=== PATIENT | female | born 2000 | race African-American/Black ===

== ENCOUNTER 2022-01-26 17:32 | Emergency (ER) | payer SELFPAY ==
[~2022-01-26] VITALS: Ht 172.7 cm; Wt 80.5 kg
[2022-01-26 17:33] VITALS: BP 130/69
[2022-01-26] MEDS ORDERED: KETOROLAC TROMETHAMINE 10 MG TAB PO ONE (19:00)
== END 2022-01-26 19:02 | disposition home or self-care (01) ==
LOC: M ED 17:32
DX: S93.601A Unspecified sprain of right foot, initial encounter (principal); W22.8XXA Striking against or struck by other objects, initial encounter; Y92.9 Unspecified place or not applicable; Y93.9 Activity, unspecified; Y99.9 Unspecified external cause status

== ENCOUNTER 2022-04-11 20:15 | Emergency (ER) | payer SELFPAY ==
[~2022-04-11] VITALS: Ht 172.7 cm; Wt 80.9 kg
[2022-04-11 20:16] VITALS: BP 128/99
== END 2022-04-11 22:09 | disposition home or self-care (01) ==
LOC: M ED 20:15
DX: Z32.02 Encounter for pregnancy test, result negative (principal)

== ENCOUNTER 2022-05-25 13:50 | Emergency (ER) | payer OTHER, SELFPAY ==
[~2022-05-25] VITALS: Ht 172.7 cm; Wt 82.1 kg
[2022-05-25 15:33] LABS: BASO % 0.3 % (0.0-1.0); EOS # 0.1 10^3/uL (0.0-0.5); HEMATOCRIT 36.9 % (36.0-47.0); HEMOGLOBIN 11.5 g/dl (12.0-15.5); LYMPH # 2.7 10^3/uL (1.5-5.0); LYMPH % 41.9 % (24.0-44.0); MEAN CORPUSCULAR HEMOGLOBIN 25.8 pg (27.0-33.0); MEAN CORPUSCULAR HGB CONC 31.2 g/dl (32.0-36.5); MEAN CORPUSCULAR VOLUME 82.7 fl (80.0-96.0); MONO # 0.4 10^3/uL (0.0-0.8); MONO % 6.5 % (2.0-8.0); NEUTROPHILS # 3.2 10^3/uL (1.5-8.5); NEUTROPHILS % 49.1 % (36.0-66.0); PLATELET COUNT, AUTOMATED 359 10^3/uL (150-450); RED BLOOD COUNT 4.46 10^6/uL (4.00-5.40); WHITE BLOOD COUNT 6.4 10^3/uL (4.0-10.0)
[2022-05-25] MEDS ORDERED: ONDANSETRON 4MG ORAL DISINTEGRATING TAB PO ONE (15:50)
[2022-05-25 15:53] LABS: ALBUMIN 3.7 GM/DL (3.2-5.2); ALT/SGPT 15 U/L (12-78); BILIRUBIN,DIRECT < 0.1 MG/DL (0.0-0.2); BILIRUBIN,TOTAL 0.1 MG/DL (0.2-1.0); LIPASE 224 U/L (73-393); TOTAL PROTEIN 7.3 GM/DL (6.4-8.2)
[2022-05-25] MEDS ORDERED: NS 1,000 ML IV ONE (15:55)
[2022-05-25] MEDS ORDERED: ONDA4TAB6 PO (16:30)
[2022-05-25 17:05] VITALS: BP 126/82
== END 2022-05-25 17:06 | disposition home or self-care (01) ==
LOC: M ED 13:50
DX: R11.2 Nausea with vomiting, unspecified (principal); E86.0 Dehydration

== ENCOUNTER → 2022-12-26 | Outpatient (CLI) | payer OTHER ==
[~2022-12-26] MED LIST: ONDA4TAB6 PO
== END ==
LOC: M SOG 07:50
PROVIDERS: ATTEND Physician Assistant
DX: M67.432 Ganglion, left wrist (principal)